=== PATIENT | male | born 1965 | race Caucasian/White ===

== ENCOUNTER → 2018-03-15 | Outpatient (CLI) | payer BC, OTHER | LOC: M.MRI 12:53 | DX: S46.911A Strain of unspecified muscle, fascia and tendon at shoulder and upper arm level, right arm, initial encounter (principal); M19.011 Primary osteoarthritis, right shoulder; M89.8X1 Other specified disorders of bone, shoulder; M25.78 Osteophyte, vertebrae; M67.20 Synovial hypertrophy, not elsewhere classified, unspecified site; M25.811 Other specified joint disorders, right shoulder; G89.29 Other chronic pain; X58.XXXA Exposure to other specified factors, initial encounter; Y93.89 Activity, other specified; Y92.89 Other specified places as the place of occurrence of the external cause; Y99.8 Other external cause status ==

== ENCOUNTER → 2018-04-19 | Day surgery (SDC) | payer BC, OTHER ==
[~2018-04-19] MED LIST: HYDROCHLOROTH12.5 M1 PO; LISINOPRIL20 MG PO; PERCOCET PO
--- NOTE | ~2018-04-19 | OP ---
[address] [address] OPERATIVE REPORT Name: ANIKA RUCKER Room: [facility]#: [id number] Admission: 04/19/18 Attend Phys: Shan Méndez II Discharge: Date of : 63 Report #: [id number] THIS REPORT FOR: //name// CC: Shan Shipley DATE OF SERVICE: 04/19/2018 PREOPERATIVE DIAGNOSIS: Right shoulder rotator cuff tear. POSTOPERATIVE DIAGNOSES: 1. Right shoulder rotator cuff tear. 2. SLAP tear. 3. Lateral clavicle osteoarthritis. 4. Bone and cartilage debris, glenohumeral joint. 5. Subacromial impingement. PROCEDURES PERFORMED: 1. Right shoulder arthroscopic surgery with rotator cuff repair. 2. SLAP repair. 3. Lateral clavicle excision. 4. Extensive debridement of glenohumeral joint. 5. Subacromial decompression. SURGEON: Shan Méndez II, DO. IMMUNOHEMATOLOGIST: MARIELA Kelley. ANESTHESIA: Per operative record. ESTIMATED BLOOD LOSS: Minimal. ANTIBIOTICS: Per operative record. DRAINS: None. COMPLICATIONS: None. CONDITION OF THE PATIENT: Stable to recovery room. BRIEF HISTORY: The patient was seen in the clinic as well as preoperative area prior to surgery. The patient had been discussed his MRI as well as possible outcomes of tears within the labral area. The patient had been discussed both SLAP repair as well as biceps tenodesis in detail as well as current literature. The patient discussed treatment options and had elected to proceed with a SLAP repair should this be a possibility of finding this by [place] [address] OPERATIVE REPORT Name: ALKAANIKA WILLA Room: [facility].#: [id number] Admission: 04/19/18 Attend Phys: Shan Méndez II Discharge: Date of : 63 Report #: [id number] patient understood all of the risks and wished to proceed with this procedure. DESCRIPTION OF PROCEDURE: The patient was taken to the operative suite and placed supine on the operating table, given appropriate anesthesia. The patient's affected shoulder was sterilely prepped and draped in modified beachchair position and all bony prominences well padded. Surgery begun by posterior portal incision. The arthroscope was advanced in the joint. There was found to be a superior labral tear noted at the insertion of the biceps tendon. The patient had been preoperatively discussed that if this was found, he would like to have this labrum repaired rather than a biceps tenodesis as he is very functional with his arm and if the biceps was intact, he elected to proceed with a SLAP repair. Utilizing an anterior portal and cannula, the glenoid was wrapped along the superior margin down to bleeding bone. Labrum was then secured utilizing suture and anchored to the superior margin of the glenoid. It was probed and found to be intact with excellent fixation of the SLAP tear. There was no fraying to the biceps tendon and no evidence of tear. There was found to be extensive bone and cartilage debridement of glenohumeral joint as well as posterior and inferior labral tears. This was debrided utilizing a shaver throughout the superior and inferior as well as anterior and posterior portions of the glenohumeral joint utilizing a shaver to remove all the bone and cartilage debris with extensive debridement performed. The arthroscope was advanced in the subacromial space and a subacromial decompression with partial anterior acromioplasty was performed. There was significant impingement. The distal centimeter clavicle was also excised utilizing a shaver and arthroscopic bur to the distal center of clavicle due to significant osteoarthritis of the AC joint. There was found to be a rotator cuff tear in its lateral margin of the supraspinatus measuring approximately 8 mm. This was debrided by utilizing a shaver to the free edge down to fresh tissue. A bone bed was then repaired along the lateral humerus down to bleeding bone. Two sutures were then placed through the rotator cuff proximally. These were then placed in excellent configuration and anchored to the lateral humerus with two anchors. This was probed and found to be intact. A medium arthroscopic bioinductive implant was then utilized with DEBRA tendon anchor secured medially and PEEK bone anchor secured laterally to assist with rotator cuff repair. This was probed and shown to be intact with excellent repair of the rotator cuff and full range of motion of the shoulder without evidence of re-tear. Final image was taken of the shoulder. It was then drained of arthroscopic fluid, closed with 4-0 nylon in interrupted fashion. Dermabond, sterile dressing and sling applied. The patient was transferred to recovery room in stable condition. Counts correct throughout the procedure. By: [id number] Méndez II, DO /nt
[2018-04-19 07:22] LABS: HEMATOCRIT 43.1 % (42.0-52.0); HEMOGLOBIN 14.8 gm/dL (14.0-18.0); MCHC 34.4 g/dL (28.0-37.0); MCV 90.2 fL (80.0-100.0); MPV 8.2 fl. (7.2-11.1); RBC 4.78 mil/uL (4.50-6.00); RDW-CV 13.7 % (10.5-14.5); WBC 10.7 thou/uL (4.0-11.0)
[2018-04-19 07:34] LABS: ALBUMIN 3.9 g/dL (3.4-5.0); CALCIUM 9.2 mg/dL (8.5-10.1); CREATININE 1.1 mg/dL (0.6-1.3); POTASSIUM 3.8 mmol/L (3.5-5.1); TOTAL BILIRUBIN 0.4 mg/dL (<0.1-1.0)
--- NOTE | 2018-04-19 16:07 | EKG ---
[place] [address] ELECTROCARDIOGRAM REPORT Name: ANIKA RUCKER Room: [facility]#: [id number] Admission: 04/19/18 Attend Phys: Shan Méndez II Discharge: Date of : 63 Report #: [id number] THIS REPORT FOR: //name// [facility] [place] Test Date: 2018-04-19 Test Time: 07:50:40 Pat Name: ANIKA RUCKER Department: Room: Gender: M Welfare Interviewer: : 1965 Requested By: Shan Méndez Order Number: [id number] Jaziel MD: Jah Zurita Measurements Intervals [place] Rate: 65 P: 41 UT: 141 QRS: 8 QRSD: 96 T: 32 QT: 395 QTc: 411 Interpretive Statements Sinus rhythm No previous ECG available for comparison Electronically Signed On 04-19-2018 16:07:17 [employer]ARDNESS [employer] by Jah Zurita [email or web address] <ELECTRONICALLY SIGNED> By: Jah Zurita MD, [facility] 04/19/18 1607 0750 0750 Jah Zurita MD, FACC /EPI
== END | disposition home or self-care (01) ==
LOC: M.SUR 07:04
PROVIDERS: Orthopaedic Surgery
DX: M75.101 Unspecified rotator cuff tear or rupture of right shoulder, not specified as traumatic (principal); S43.491A Other sprain of right shoulder joint, initial encounter; M75.41 Impingement syndrome of right shoulder; M19.011 Primary osteoarthritis, right shoulder; Z98.890 Other specified postprocedural states

== ENCOUNTER → 2019-01-01 | Outpatient (CLI) | payer BC, OTHER ==
--- NOTE | 2019-01-04 19:56 | SLEEP ---
[address] [address] SLEEP STUDY REPORT Name: RUCKERANIKA Room: [facility]#: [id number] Admission: 01/01/19 Attend Phys: Nichelle Ochoa Discharge: Date of : 63 Report #: [id number] THIS REPORT FOR: //name// CC: Sylvester Shipley DO This study has been reviewed in its entirety by a board certified sleep specialist DATE OF SERVICE: 01/03/2019 HOME SLEEP STUDY REFERRING PHYSICIAN: Sylvester Shipley DO The patient is 53 years old who weighs 222 pounds with a BMI of 33.8. The patient's [place] score was 9. The patient underwent home sleep study performed by [facility]. Total recording time was 475 minutes. During the night study, the patient had no central apneas or mixed apneas, but 70 obstructive apneas and 102 hypopneas. The patient's apnea hypopnea index was 21.9 per hour with a supine index of 29.6 per hour. Nocturnal oximetry study revealed an average oxygen saturation of 94% with a lowest of 83%. Six minutes were spent in oxygen saturation less than 90%. Mean heart rate was 58.6 beats per minute with a maximum of 81 beats per minute. IMPRESSION: 1. Moderate sleep apnea-hypopnea syndrome at an AHI of 21.9 per hour with worsening AHI to 29.6 per hour during supine sleep. 2. Mild nocturnal hypoxia secondary to obstructive sleep apnea. RECOMMENDATIONS: 1. The patient would benefit from treatment of sleep apnea with CPAP. This can be done as an in-lab titration study versus home auto-titration study. 2. Once the patient is optimally treated, then follow up in 4-6 weeks to assess compliance with treatment and to document clinical improvement. 3. Weight loss is strongly advised. 4. Avoid [place] [employer] depressants. 5. Cautioned regarding driving until symptoms of sleep apnea resolve with the use of CPAP. <ELECTRONICALLY SIGNED> By: Edward Shelley MD 01/04/191955 1336 [id number] Shelley MD /nt
== END ==
LOC: M.SLEEPLAB 10:00
DX: G47.33 Obstructive sleep apnea (adult) (pediatric) (principal); G47.34 Idiopathic sleep related nonobstructive alveolar hypoventilation